=== PATIENT | male | born 1980 | race African-American/Black ===

== ENCOUNTER 2022-03-18 16:26 | Emergency (ER) | payer BC ==
[~2022-03-18] VITALS: Ht 162.6 cm; Wt 58.0 kg
[2022-03-18 17:10] VITALS: BP 148/95
--- NOTE | 2022-03-18 17:26 | RAD ---
EXAM: 3 views of the right elbow DATE: 03/18/2022 5:22 PM INDICATION: Reason: elbow pain / Spl. Instructions: / History: COMPARISON: No Prior FINDINGS: No elbow joint effusion. No acute fracture or dislocation. Mild soft tissue swelling overlying the ol ecranon. IMPRESSION: 1. No acute fracture or dislocation. 2. Mild soft tissue swelling overlying the olecranon. Electronically signed by: Ihsan Underwood MD (03/18/2022 5:23 PM) [place]
--- NOTE | 2022-03-18 17:41 | PHYS DOC ---
Past History Past Surgical History: No Surgical History General Adult EDM: Chief Complaint: ELBOW PROBLEM HPI: HPI: Patient is a 41-year-old male who presents to the emergency department for right elbow pain. Patient reports that he was wrestling with his son outside when he hit his right elbow. Patient does report swelling and abrasions to his right elbow. He reports that he had it today and needs to continue to have pain. Patient denies any decreased range of motion or decreased sensation in his extremity. Review of Systems: Review of Systems: Musculoskeletal: See HPI Integument: See HPI Neurologic: See HPI Physical Exam: PE: Constitutional: Well developed, well nourished, no acute distress, non-toxic appearance. [] HENT: Normocephalic, atraumatic, bilateral external ears normal, oropharynx moist, no oral exudates, nose normal. [] Eyes: PERRL, EOMI, conjunctiva normal, no discharge. [] Neck: Normal range of motion. no stridor Cardiovascular: Normal peripheral perfusion Lungs & Thorax: No work of breathing, no tachypnea Abdomen: B soft and flat Skin: Warm, dry, no erythema, no rash. [] Back: No tenderness, motion Extremities: No tenderness, no cyanosis, no clubbing, ROM intact, no edema. [] Right elbow: Swelling noted to right elbow, abrasions noted, range of motion intact, no crepitus, neuro intact Neurologic: Alert and oriented X 3, normal motor function, normal sensory function, no focal deficits noted. [] Psychologic: Affect normal, judgement normal, mood normal. [] Current Patient Data: Vital Signs: Vital Signs Date Time Temp Pulse Resp B/P (MAP) Pulse Ox O2 Delivery O2 Flow Rate FiO2 03/18/22 17:10 98.0 76 20 148/95 (112) 100 Room Air EKG: EKG: [] Radiology/Procedures: Radiology/Procedures: []PROCEDURE: ELBOW RIGHT 3V EXAM: 3 views of the right elbow DATE: 03/18/2022 5:22 PM INDICATION: Reason: elbow pain / Spl. Instructions: / History: COMPARISON: No Prior FINDINGS: No elbow joint effusion. No acute fracture or dislocation. Mild soft tissue swelling overlying the olecranon. IMPRESSION: 1. No acute fracture or dislocation. 2. Mild soft tissue swelling overlying the olecranon. Electronically signed by: Ihsan Underwood MD (03/18/2022 5:23 PM) [facility] DICTATED AND SIGNED BY: IHSAN UNDERWOOD MD DATE: 03/18/221722 CC: MERCEDES MARES APRN; PCP,NO ~ Heart Score: C/O Chest Pain: N/A Risk Factors: Risk Factors: DM, Current or recent (<one month) smoker, HTN, HLP, family history of CAD, obesity. Risk Scores: Score 0 - 3: 2.5% MACE over next 6 weeks - Discharge Home Score 4 - 6: 20.3% MACE over next 6 weeks - Admit for Clinical Observation Score 7 - 10: 72.7% MACE over next 6 weeks - Early Invasive Strategies Course & Med Decision Making: Course & Med Decision Making Pertinent Labs and Imaging studies reviewed. (See chart for details) [] Patient resents to the emergency department for right elbow pain post injury. X-ray was performed that showed no acute findings. Patient does have swelling to his elbow and therefore his elbow was placed in an Harris wrap. He is neurovascularly intact. Patient educated on the rice protocol. Patient advised to take Tylenol and ibuprofen for pain. I discussed with patient all findings and diagnostic testing as well as the need to follow-up with PCP for further evaluation and treatment or return to the ER if any new or worsening symptoms. Strict return precautions were also discussed at length. Patient voiced understanding and agreement with the plan. Patient is hemodynamically stable at the time of disposition. Dragon Disclaimer: Dragon Disclaimer: This electronic medical record was generated, in whole or in part, using a voice recognition dictation system. Departure Departure: Impression: Primary Impression: Elbow contusion Qualified Codes: S50.01XA - Contusion of right elbow, initial encounter Disposition: HOME / SELF CARE / HOMELESS Condition: GOOD Referrals: PCP,NO (PCP) Patient Instructions: RICE - Routine Care for Injuries Additional Instructions: You are seen in the emergency department today for right elbow contusion. You were seen in the emergency department today for a musculoskeletal problem that will likely improve over time. Your symptoms may be improved by something called the rice protocol. This is rest, ice, compression, elevation. Please follow-up when doing intense exercises that may make the pain worse. Sometimes gentle stretching can provide relief, but be careful to injury. It is important to perform gentle range of motion exercises to prevent stiff joints and chronic pain. Use ice packs over the affected areas to help decrease your pain. For the first 24 hours you can apply ice 20 minutes on 20 minutes off for 4 times per day. Sometimes compression such as the use of an Harris wrap can help with the swelling. You may also elevate the affected area to help with the swelling. Take Tylenol and ibuprofen at home for pain. Follow-up with your primary care provider within a week. Return to the emergency department if you develop any new injuries, worsening of your pain, decreased range of motion or decreased sensation in your extremity. MERCEDES MARES [employer] March 18, 2022 17:41
== END 2022-03-18 18:09 | disposition home or self-care (01) ==
LOC: ER 16:26
DX: S50.01XA Contusion of right elbow, initial encounter (principal); W22.8XXA Striking against or struck by other objects, initial encounter; Y93.72 Activity, wrestling; Y92.89 Other specified places as the place of occurrence of the external cause; Y99.8 Other external cause status
CPT/HCPCS: 73080; 99283